=== PATIENT | female | born 1960 | race Caucasian/White ===

== ENCOUNTER → 2017-09-26 22:36 | Outpatient (CLI) | payer MEDICARE ==
[2014-10-03 09:53] VITALS: BMI 23.8
[~2017-09-26 22:36] MED LIST: NEURONTIN 300300 MG PO; NORCO 7.5/325 T1 TA1 PO; ULTRAM50 MG PO
== END | disposition home or self-care (01) ==
LOC: D.MAMMO 13:00
DX: Z12.31 Encounter for screening mammogram for malignant neoplasm of breast (principal)

== ENCOUNTER 2019-01-26 11:06 | Outpatient (CLI) | payer MEDICARE ==
[2014-10-03 09:53] VITALS: BMI 23.8
== END 2019-01-26 23:59 | disposition home or self-care (01) ==
LOC: D.MAMMO 11:06
PROVIDERS: ATTEND Clinical Nurse Specialist Family Health
DX: Z12.31 Encounter for screening mammogram for malignant neoplasm of breast (principal)